=== PATIENT | female | born 1970 | race Caucasian/White ===

== ENCOUNTER 2018-04-29 08:40 | Day surgery (SDC) | payer MEDICARE ==
[~2018-04-29] VITALS: Ht 167.6 cm; Wt 127.0 kg
--- NOTE | ~2018-04-29 | OP ---
PATIENT NAME: DOMINGA WOODS MEDICAL RECORD: [id number] :66 LOCATION:D.OPS ADMISSION DATE: SURGEON: EMILY ALEJO MD DATE OF OPERATION: 04/29/2018 REFERRING PHYSICIAN: Sudheer Vásquez MD PREOPERATIVE DIAGNOSIS: Complication associated with surgically created arteriovenous fistula in the right arm. POSTOPERATIVE DIAGNOSIS: Complication associated with surgically created arteriovenous fistula in the right arm. OPERATION PERFORMED: Revision of AV fistula by ligation of multiple tributaries and translocation to immediately subcutaneous position. PREOPERATIVE NOTE: Ms. Woods is a 48-year-old -[place] female with end-stage renal disease. She has had a right brachiocephalic AV fistula created, which is simply too deep to be usable, and she is returned to the operating room now to revise it. Under general anesthesia, in supine position, the patient was prepped and draped in a sterile manner. A long incision was made over the vein from the antecubital space up almost to the shoulder. The vein was dissected from the surrounding tissues. Multiple venous tributaries were divided between Vicryl ligatures and Hemoclips. The vein was mobilized as much as possible into immediately subcutaneous layer and the tissues then closed beneath it with interrupted inverted 3-0 Vicryl. Skin was closed with a running intracuticular 4-0 Monocryl and Dermabond glue. The wound was dressed with Maxorb Ag and Tegaderm with Cavilon skin prep. The patient was awakened and taken to the recovery room. She was given a prescription for Destin 5/325 and an appointment to return to see me in my office in 2 weeks. Blood loss was insignificant. Sponges, instruments, and needles were accounted for. No drain was used and no surgical specimen was submitted for histopathology. 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 [address] [place] [address]
[2018-04-29 09:29] LABS: ANION GAP 16.6 mmol/L (8-16); CALCIUM 8.5 mg/dL (8.5-10.1); CARBON DIOXIDE 25.6 mmol/L (21.0-32.0); CREATININE - SERUM 4.6 mg/dL (0.6-1.3); POTASSIUM - SERUM 4.2 mmol/L (3.5-5.1)
[2018-04-29 09:40] LABS: APTT 27.9 SECONDS (22.8-39.4); INR 1.08 (0.85-1.17); PROTIME 13.6 SECONDS (11.6-15.0)
[2018-04-29 09:45] LABS: HEMOGLOBIN 10.6 g/dL (12-16); LYMPHOCYTES 16.2 % (15-50); MCH 31.4 pg (26.0-34.0); MCHC 33.1 g/dL (31.0-37.0); MCV 94.7 fL (80.0-100.0); NEUTROPHILS 73.8 % (40-80); PLATELET COUNT 222 10x3/uL (130-400); RBC 3.38 10x6/uL (4.00-5.40); RDW 15.7 % (11.5-14.5); WBC 8.6 10x3/uL (4.8-10.8)
[2018-04-29] MEDS ORDERED: HYDROCHLOROTHIA50 MG PO (10:56)
[2018-04-29] MEDS ORDERED: ZYLOPRIM100 MG (10:57)
[2018-04-29] MEDS ORDERED: NORVASC10 MG PO (10:57)
[2018-04-29 11:06] VITALS: BP 143/78; Ht 167.6 cm; Wt 127.0 kg
== END 2018-04-29 22:55 | disposition home or self-care (01) ==
LOC: D.OPS 08:40 → D.M2 19:57 → D.OPS 22:55
PROVIDERS: Surgery
DX: T82.898A Other specified complication of vascular prosthetic devices, implants and grafts, initial encounter (principal); N18.6 End stage renal disease; Z99.2 Dependence on renal dialysis; Z01.812 Encounter for preprocedural laboratory examination